=== PATIENT | female | born 1995 | race Caucasian/White ===

== ENCOUNTER 2018-10-30 18:17 | Emergency (ER) | payer MEDICAID ==
[~2018-10-30] VITALS: Ht 170.2 cm; Wt 90.7 kg
[2018-10-30 18:30] VITALS: BP 131/78
--- NOTE | 2018-10-30 18:40 | NUR ---
EKG IN TRIAGE ROOM
--- NOTE | 2018-10-30 18:43 | NUR ---
EKG REVIEWED BY AND OK PATIENT TO WAIT IN THE LOBBY FOR BED. AMBULATED TO LOBBY. NO DISTRESS
--- NOTE | 2018-10-30 21:05 | NUR ---
PATIENT AMBULATED TO BED 12
--- NOTE | 2018-10-30 21:10 | NUR ---
PT BIB SELF FOR CP X1 MONTH. PT REPORTS SHARP PAIN IN L CHEST THAT RADIATES TO PINS/NEEDLES IN L SHOULDER. PT REPORTS PAIN BECAME WORSE TODAY ALTHOUGH PRESENT PAIN LEVEL IS 5/10. HEART RRR, RADIAL PULSES EQUAL 2+, CAP REFIL < 3 SEC, NO EDEMA PRESENT. PT DENIES SOB BUT STATES "DIFFICULTY BREATHING". PT DENIES N/V/D OR DIZZINESS. PT REPORTS SEEING THERAPIST FOR ANXIETY AND IS WAITING FOR APPOINTMENT WITH PSYCHIATRIST. VSS. ER MD TO SEE PT. WILL CONTINUE TO MONITOR. MEDHX:ANXIETY RX:NONE
[2018-10-30] MEDS ORDERED: KETOROLAC 60 MG/2 ML VIAL IM ONE (23:10)
[2018-10-30 23:30] VITALS: BP 108/82
--- NOTE | 2018-10-30 23:30 | NUR ---
Patient discharged with v/s stable. Written and verbal after care instructions given and explained. Patient alert, oriented and verbalized understanding of instructions. Ambulatory with steady gait. All questions addressed prior to discharge. ID band removed. Patient advised to follow up with PMD. Rx of MOTRIN 800MG AND PREDNISONE 20MG given. Patient educated on indication of medication including possible reaction and side effects. Opportunity to ask questions provided and answered.
== END 2018-10-30 23:30 | disposition home or self-care (01) ==
LOC: MED 18:17
DX: R07.89 Other chest pain (principal); F17.210 Nicotine dependence, cigarettes, uncomplicated
CPT/HCPCS: 71045; 93005; 96372; 99283; J1885; Q0092